=== PATIENT | male | born 1995 | race Caucasian/White ===

== ENCOUNTER 2016-11-17 19:14 | Emergency (ER) | payer BC, OTHER ==
[~2016-11-17] VITALS: Ht 182.9 cm; Wt 58.9 kg
[2016-11-17 19:17] VITALS: TEMP 36.6; Ht 182.9 cm; Wt 58.9 kg
[2016-11-17] MEDS ORDERED: IBUP-103 PO (19:31)
--- NOTE | 2016-11-17 20:23 | DIAGNOSTIC IMAGING REPORT ---
LEFT FOOT MIN 3 VIEWS ROUTINE CLINICAL HISTORY: Left foot injury COMPARISON: None FINDINGS: There is an acute nondisplaced fracture within the medial base of the proximal phalanx of the left first toe. There is associated soft tissue swelling. No additional fractures are identified. Tarsometatarsal joints are intact. IMPRESSION: Acute nondisplaced fracture of the medial base of the proximal phalanx of the left first toe with intra-articular extension. Electronically signed by: Dudley Hyde M.D. 11/17/2016 8:22 PM Dictated Date/Time: 11/17/2016 8:20 PM
[2016-11-17 21:10] VITALS: BP 129/72; PULSE 94; O2SAT 95
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
== END 2016-11-17 21:10 | disposition home or self-care (01) ==
LOC: C.EDB 19:16 → C.EDD 21:10
DX: S92.405A Nondisplaced unspecified fracture of left great toe, initial encounter for closed fracture (principal); V29.9XXA Motorcycle rider (driver) (passenger) injured in unspecified traffic accident, initial encounter

== ENCOUNTER 2017-08-20 17:24 | Emergency (ER) | payer OTHER ==
[~2017-08-20] VITALS: Ht 182.9 cm; Wt 68.7 kg
[~2017-08-20 17:24] MED LIST: IBUP-103 PO
[2017-08-20 17:31] VITALS: TEMP 37.3; Ht 182.9 cm; Wt 68.7 kg
[2017-08-20] MEDS ORDERED: ACETAMINOPHEN 500 MG TAB PO STA (17:35)
--- NOTE | 2017-08-20 18:28 | DIAGNOSTIC IMAGING REPORT ---
RIGHT SHOULDER 3 VIEWS HISTORY: r shoulder pain COMPARISON: None. FINDINGS: There is no fracture or dislocation. Soft tissues are unremarkable. No radiopaque foreign bodies. IMPRESSION: No fractures. Electronically signed by: Amari Moran M.D. 08/20/2017 6:27 PM Dictated Date/Time: 08/20/2017 6:27 PM
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
--- NOTE | 2017-08-20 18:35 | DIAGNOSTIC IMAGING REPORT ---
L FOOT MIN 3 VIEWS ROUTINE, L ANKLE MIN 3 VIEWS ROUTINE CLINICAL HISTORY: Left first toe pain. COMPARISON STUDY: Left foot 11/17/2016. FINDINGS: Mild soft tissue swelling at the first toe. There is a healed fracture at the base of the proximal phalanx of the first toe. Slightly distracted fracture at the base of the distal phalanx of the first toe. This extends to the articular surface. There is also nondisplaced fracture at the head of the proximal phalanx of the first toe. No dislocation. No acute fracture or dislocation within the left ankle. Soft tissue swelling within the ankle. IMPRESSION: 1. Small acute fractures involving the proximal and distal phalanx of the left first toe as described above. 2. No acute fracture or dislocation within the left ankle. Electronically signed by: Amari Moran M.D. 08/20/2017 6:34 PM Dictated Date/Time: 08/20/2017 6:31 PM
[2017-08-20 20:59] VITALS: BP 132/66; PULSE 96; O2SAT 96
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
== END 2017-08-20 21:02 | disposition home or self-care (01) ==
LOC: EDBD 17:24 → C.EDC 17:25
DX: S92.405A Nondisplaced unspecified fracture of left great toe, initial encounter for closed fracture (principal); S93.409A Sprain of unspecified ligament of unspecified ankle, initial encounter; T14.8XXA Other injury of unspecified body region, initial encounter; V49.40XA Driver injured in collision with unspecified motor vehicles in traffic accident, initial encounter; Z88.1 Allergy status to other antibiotic agents